=== PATIENT | male | born 1975 | race Caucasian/White ===

== ENCOUNTER 2016-09-30 01:39 | Emergency (ER) | payer OTHER ==
[2016-09-30 01:48] VITALS: BP 141/87; PULSE 74; TEMP 98; BMI 32.5
--- NOTE | 2016-09-30 03:02 | PDOC ---
History of Present Illness - General Chief Complaint: Pain, Acute Stated Complaint: CHEST PAIN/ANXIETY Time Seen by Provider: 09/30/16 01:52 - History of Present Illness Initial Comments: 09/30/16 04:44 while lying in bed after using albuterol developed rapid regular chest palpitation also pressure in back of head PERFs: no travel, no LE swelling, +cigar, no recent immobilization, no hx of dvt / pe cardiac rfs: distant cocaine use' palpitations rf: + caffeine, + tobacco, + stimulant (albuterol) symptoms now resolved pmh: denies fhx: non-contrib ros: reviewed and otherwise negative Physical exam: GENERAL: [The patient is awake, alert, and fully oriented, and in no apparent distress.] HEAD: [Normal with no signs of trauma.] EYES: [Pupils equal, round and reactive to light, extraocular movements intact, sclera anicteric, conjunctiva are normal.] ENT: [TMs normal, nares patent, oropharynx clear without exudates. Moist mucous membranes.] NECK: [Normal range of motion, supple without lymphadenopathy, JVD, or masses.] LUNGS: [Breath sounds equal, clear to auscultation bilaterally. No wheezes, and no crackles.] HEART: [Regular rate and rhythm, normal S1 and S2 without murmur, rub or gallop.] ABDOMEN: [Soft, nontender, normoactive bowel sounds. No guarding, no rebound. No masses appreciated.] EXTREMITIES: [Normal range of motion, no edema. No clubbing or cyanosis. No cords, erythema, or tenderness.] NEUROLOGICAL: [Cranial nerves II through XII grossly intact. Normal speech, normal gait.] PSYCH: [Normal mood, normal affect.] SKIN: [Warm, Dry, normal turgor, no rashes or lesions noted.] ekg: sinus at 71, nl axis, nl intervals, R, s, R1 pattern 3 a/p nonspecific palpitations with stimulant use counselled re use of stimulants PERC- Past History - Past Medical History Allergies/Adverse Reactions: Allergies Allergy/AdvReac Type Severity Reaction Status Date / Time Penicillins Allergy Verified 09/30/16 01:40 shellfish derived Allergy Verified 09/30/16 01:40 Home Medications: Ambulatory Orders Albuterol Sulfate Inhaler - [Ventolin Hfa Inhaler -] 1 puff IH PRN 09/30/16 Asthma: Yes - Surgical History Lung Surgery: Yes - Immunization History Td Vaccination: Yes Immunization Up to Date: No - Psycho/Social/Smoking Cessation Hx Anxiety: Yes Suicidal Ideation: No Smoking Status: Yes Smoking History: Current some day smoker Have you smoked in the past 12 months: Yes Number of Cigarettes Smoked Daily: 0 Cigars Per Day: 1 Information on smoking cessation initiated: Yes 'Breaking Loose' booklet given: 09/30/16 Hx Alcohol Use: Yes (OCCAS.) Drug/Substance Use Hx: Yes (COCAINE 7 YRS AGO) Substance Use Type: None *Physical Exam - Vital Signs Last Vital Signs Temp Pulse Resp BP Pulse Ox 98 F 74 18 141/87 99 09/30/16 01:43 09/30/16 01:43 09/30/16 01:43 09/30/16 01:43 09/30/16 01:43 *DC/Admit/Observation/Transfer Diagnosis at time of Disposition: Palpitations - Discharge Dispostion Disposition: HOME Condition at time of disposition: Stable - Patient Instructions Printed Discharge Instructions: DI for Palpitations
--- NOTE | 2016-10-01 13:45 | EKG ---
Test Reason : Blood Pressure : / mmHG Vent. Rate : 071 BPM Atrial Rate : 071 BPM P-R Int : 164 ms QRS Dur : 100 ms QT Int : 378 ms P-R-T Axes : 046 018 021 degrees QTc Int : 410 ms NORMAL SINUS RHYTHM NORMAL ECG NO PREVIOUS ECGS AVAILABLE BASELINE ARTIFACT Confirmed by REINA JENKINS, BRENDA ([id number]) on 10/01/2016 1:44:48 PM Referred By: MD SRINIVASAN Confirmed By:BRENDA HUANG MD
== END 2016-09-30 02:03 | disposition home or self-care (01) ==
LOC: FER 01:39
DX: R00.2 Palpitations (principal); F17.210 Nicotine dependence, cigarettes, uncomplicated; F41.9 Anxiety disorder, unspecified; J45.909 Unspecified asthma, uncomplicated
CPT/HCPCS: 93005; 93010; 99281-25

== ENCOUNTER 2022-06-18 19:15 | Emergency (ER) | payer OTHER ==
[2022-06-18 19:35] VITALS: BP 142/93; PULSE 72; RESP 16; TEMP 98.7; BMI 31.0
[2022-06-18] MEDS ORDERED: METOCLOPRAMIDE HCL INJECTION 10 MG/2 ML VIAL IVPUSH ONE (19:35)
[2022-06-18] MEDS ORDERED: ACETAMINOPHEN 325 MG TABLET (FP) PO ONE (19:35)
[2022-06-18] MEDS ORDERED: METOCLOPRAMIDE HCL INJECTION 10 MG/2 ML VIAL ONE (19:38)
[2022-06-18] MEDS ORDERED: ACETAMINOPHEN 500 MG TABLET (FP) ONE (19:38)
[2022-06-18 20:17] LABS: HEMATOCRIT 45.6 % (35.4-49); HEMOGLOBIN 15.8 G/dL (11.7-16.9); MCHC 34.6 g/dl (32.0-35.9); MEAN CELL VOLUME 92.4 fl (80-96); MEAN PLT VOLUME 7.6 fl (7.5-11.1); RBC 4.93 10^6/uL (4.00-5.60); RDW 13.4 % (11.9-15.9); WHITE BLOOD COUNT 5.6 10^3/uL (4.0-10.8)
[2022-06-18 20:38] LABS: ALBUMIN 4.6 g/dl (3.4-5.0); BILIRUBIN,TOTAL 0.8 mg/dl (0.2-1); TOT PROT 7.4 g/dl (6.4-8.2)
[2022-06-18 20:45] LABS: PLATELET ESTIMATE ADEQUATE
[2022-06-18 20:48] LABS: CALCIUM 9.4 mg/dl (8.5-10)
== END 2022-06-18 21:35 | disposition home or self-care (01) ==
LOC: FER 19:15
PROC: 3E033GC Introduction of Other Therapeutic Substance into Peripheral Vein, Percutaneous Approach (ICD-10-PCS; principal; 2022-06-18)
DX: G44.209 Tension-type headache, unspecified, not intractable (principal); R07.89 Other chest pain
CPT/HCPCS: 36415; 71046-TC-FY; 80053; 82550; 82553; 84484; 85025; 93005; 99285-25